=== PATIENT | female | born 1975 | race Caucasian/White ===

== ENCOUNTER 2017-03-27 09:50 | Day surgery (SDC) | payer BC ==
[~2017-03-27] VITALS: Ht 149.9 cm; Wt 77.1 kg
[2017-03-27] VITALS (9 sets, daily range): BP systolic 114–157; BP diastolic 66–82
--- NOTE | 2017-03-27 06:58 | Pre-Procedure Note/Attestation ---
Pre-Procedure Note/Attestation Complete Prior to Procedure Planned Procedure: right Procedure Narrative: rt shoulder scope, bankart repair, labral repair Indications for Procedure Pre-Operative Diagnosis: rt shoulder instability Attestation I attest that I discussed the nature of the procedure; its benefits; risks and complications; and alternatives (and the risks and benefits of such alternatives ), prior to the procedure, with the patient (or the patient's legal telesales representative). I attest that, if there was a reasonable possibility of needing a blood transfusion, the patient (or the patient's legal telesales representative) was given the [facility] standardized written summary, pursuant to the [place] Blood Safety Act ([place] Health and Safety Code # 1645, as amended). I attest that I re-evaluated the patient just prior to the surgery and that there has been no change in the patient's H&P, except as documented below: none JADON ETIENNE Mar 27, 2017 06:58
[~2017-03-27 09:50] MED LIST: ceFAZolin 1gm in D5W 55ml IVP ONE; celeBREX 200mg Cap **SURGERY PATIENTS ONLY ORAL ONE; oxyCONTIN 20mg tab ORAL ONE
[2017-03-27] MEDS ORDERED: ESCITALOPRAM OX20 MG ORAL (10:41)
[2017-03-27] MEDS ORDERED: LORazepam Inj 2mg/ml 1ml IV PRN (12:00)
[2017-03-27] MEDS ORDERED: LR 1000ml 1,000 ML IVLG SCH (12:00)
[2017-03-27] MEDS ORDERED: Metoclopramide 10mg/2ml Inj IVP PRN (12:00)
[2017-03-27] MEDS ORDERED: oxyCODONE HCL/Acetaminophen 5/325mg ORAL PRN (12:00)
[2017-03-27] MEDS ORDERED: Norco 5mg/325mg tab ORAL PRN ×2 (12:00→18:01)
[2017-03-27] MEDS ORDERED: Ketorolac 30mg Inj IV PRN ×2 (12:00)
[2017-03-27] MEDS ORDERED: DiphenhydrAMINE 50mg/ml Inj IVP PRN (12:00)
[2017-03-27] MEDS ORDERED: Midazolam 2mg/2ml Inj IVP PRN (12:00)
[2017-03-27] MEDS ORDERED: fentaNYL 100 mcg/2 mL IV PRN (12:00)
[2017-03-27] MEDS ORDERED: Atropine Inj 1mg/10ml Syr IV PRN (12:00)
[2017-03-27] MEDS ORDERED: Norco 7.5mg/325mg tab ORAL PRN (12:00)
[2017-03-27] MEDS ORDERED: Hydromorphone 0.5mg/0.5ml inj IVP PRN (12:00)
--- NOTE | 2017-03-27 12:00 | Anethesia Preoperative Eval ---
Anesthesia Pre-op PMH/ROS General Date of Evaluation: Mar 27, 2017 Time of Evaluation: 12:21 Anesthesiologist: Ervin ASA Score: ASA 2 Mallampati Score Class I : Soft palate, uvula, fauces, pillars visible Class II: Soft palate, uvula, fauces visible Class III: Soft palate, base of uvula visible Class IV: Only hard plate visible Mallampati Classification: Class I Surgeon: Dalia Diagnosis: R Shoulder Pain Surgical Procedure: R Shoulder Arthroscopy Anesthesia History: none Family History: no anesthesia problems Allergies: Coded Allergies: No Known Allergies (Unverified , 03/26/17) Medications: see eMAR Past Medical History Other: obesity - BMI 38 Anesthesia Pre-op Phys. Exam Physician Exam Last Vital Signs Date Time Temp Pulse Resp B/P (MAP) Pulse Ox O2 Delivery O2 Flow Rate FiO2 03/27/17 10:41 97.9 50 20 129/74 100 Room Air Constitutional: NAD Neurologic: CN 2-12 intact Cardiovascular: RRR Respiratory: CTA Gastrointestinal: S/NT/ND Airway Exam Mallampati Score: Class I MO: full ROM: full Teeth: intact Anesthesia Pre-op A/P Labs Urine Test Test 03/27/17 10:20 Urine HCG, Qualitative Negative Risk Assessment & Plan Assessment: ASA 2 Plan: GA, BIS, GlideScope Status Change Before Surgery: No Pre-Antibiotics Dru Grams Ancef IV Given Within 1 Hr of Incision: Yes Time Given: 12:42 Kalia Mueller MD Mar 27, 2017 12:00
[2017-03-27] MEDS ORDERED: Ropivacaine 5mg/ml Vial 30ml INJ ONE (12:10)
[2017-03-27] MEDS ORDERED: Lidocaine 1% MPF 10mg/ml 5ml ONE (12:30)
[2017-03-27] MEDS ORDERED: Alfentanil 2ml Inj ONE (12:30)
[2017-03-27] MEDS ORDERED: Propofol 200mg/20ml IV ONE (12:30)
[2017-03-27] MEDS ORDERED: Sterile Water Irrig 1000ml IRRIG ONE (12:30)
[2017-03-27] MEDS ORDERED: LR 1000ml ONE (12:30)
[2017-03-27] MEDS ORDERED: NS Irrig 4000ml IRRIG ONE (12:30)
--- NOTE | 2017-03-27 13:15 | Immediate Post-Op Evaluation ---
Immediate Post-Op Evalulation Immediate Post-Op Evalulation Procedure: R Shoulder Arthroscopy, Bankart Repair, Labral Repair Date of Evaluation: Mar 27, 2017 Time of Evaluation: 15:08 IV Fluids: 800 LR Blood Products: 0 Estimated Blood Loss: 20 Urinary Output: 0 Blood Pressure Systolic: 121 Blood Pressure Diastolic: 77 Pulse Rate: 108 Respiratory Rate: 16 O2 Sat by Pulse Oximetry: 99 Temperature (Fahrenheit): 97.1 Pain Score (1-10): 1 Nausea: No Vomiting: No Complications 0 Patient Status: awake, reacts, patent, extubated, none Hydration Status: adequate Dru Grams Ancef IV Given Within 1 Hr of Incision: Yes Time Given: 12:42 Kalia Mueller MD Mar 27, 2017 13:15
--- NOTE | 2017-03-27 13:15 | 48 Hour Post Anesthesia Eval ---
Post Anesthesia Evaluation Procedure: R Shoulder Arthroscopy, Bankart Repair, Labral Repair Date of Evaluation: Mar 27, 2017 Time of Evaluation: 17:34 Blood Pressure Systolic: 118 0: 67 Pulse Rate: 74 Respiratory Rate: 18 Temperature (Fahrenheit): 98.3 O2 Sat by Pulse Oximetry: 98 Airway: patent Nausea: No Vomiting: No Pain Intensity: 1 Hydration Status: adequate Cardiopulmonary Status: Stable Mental Status/LOC: patient returned to baseline Follow-up Care/Observations: 0 Post-Anesthesia Complications: 0 Follow-up care needed: ready to discharge Kalia Mueller MD Mar 27, 2017 13:15
--- NOTE | 2017-03-27 15:02 | Brief Operative Note ---
Immediate Post Operative Note Operative Note Chief Complaint: rt shoulder instability Pre-op Diagnosis: rt shoulder instability Procedure: rt shoulder scope, bankart repair, posterior labral repair Post-op Diagnosis: same as pre-op Findings: consistent w/pre-op dx studies Surgeon: md dru Roving Department Supervisor: brice lockhart Anesthesiologist: md sheree Anesthesia: general Specimen: none Complications: none Condition: stable Fluids: ns Estimated Blood Loss: minimal Drains: none Implant(s) used?: Yes - biomet RAVINDER LOCKHART Mar 27, 2017 15:02
[2017-03-27] MEDS ORDERED: D5 1/2NS 1,000 ML IV SCH (18:01)
[2017-03-27] MEDS ORDERED: HYDROmorphone 1mg/ml Carpuject SUBQ PRN (18:01)
[2017-03-27] MEDS ORDERED: Tylenol #3 tab (300mg/30mg) ORAL PRN (18:01)
--- NOTE | 2017-03-27 23:30 | Operative Note - Dictated ---
DATE OF OPERATION: 03/27/2017 PREOPERATIVE DIAGNOSES: 1. Right shoulder large anterior inferior labral tear with displacement (Bankart tear). 2. Right shoulder posterior labral tear. POSTOPERATIVE DIAGNOSES: 1. Right shoulder large anterior Bankart tear involving the entire anterior labrum all the way down to the inferior aspect of the glenoid with displacement medially. 2. Right shoulder loss of subglenoid bone 30% anterior inferiorly. 3. Right shoulder posterior labral tearing from posterior inferior all the way up to the mid posterior aspect of the shoulder. PROCEDURES: 1. Right shoulder arthroscopy and extensive intra-articular shaving. 2. Right shoulder anterior capsular repair (Bankart repair) with 4 Biomet 1.5 mm JuggerKnot anchors. 3. Right shoulder posterior and posterior inferior and posterior superior labral repair using 2 Biomet 2.9 mm JuggerKnot anchor with a posterior inferior capsular shift. 4. Extensive debridement of the superior labral tearing consistent with degenerative SLAP tear. SURGEON: Mateus Gómez M.D. TRAUMA DIRECTOR: Jeannie Fairchild PA-C. Cake Press Operator was present during the actual operative portion of the case and was important and essential part of the operation. During the operation, the veterinarian assistant held and operated the arthroscopic camera for visualization, assisted by manipulating the arm to help with visualization, and helped with essential parts of the repair process as necessary such as operating surgical instruments under surgeon supervision, suture management, and wound closures. ANESTHESIOLOGIST: Kalia Mueller M.D. ANESTHESIA: General LMA anesthesia. EBL: Minimal. COMPLICATIONS: None. SURGICAL INDICATION: Patient is a 41-year-old female who sustained the above injury to her shoulder. The patient was treated non-operative initially, but this did not alleviate the patients symptoms. Therefore, after discussing all non-surgical and surgical options, and discussing all foreseeable risk and benefits of surgery, the patient opted for surgical treatment as described above. PATIENT POSITIONING: Patient was brought to the operating room table and was placed on the operating room table. All pressure points were well padded. General anesthesia was induced and patient was then placed in the lateral decubitus position. All pressure points were well padded again and an axillary roll was placed. Patient shoulder was then prepped and draped in the usual sterile fashion. Time out was performed and the appropriate preoperative antibiotic was given by the anesthesiologist. EXAMINATION OF SHOULDER UNDER ANESTHESIA: The shoulder was examined under anesthesia with all muscles well relaxed. The shoulder was forward flexed, abducted and was placed through full range of external and internal rotation. The anterior, posterior, and inferior stability of the shoulder was checked. The exam revealed no evidence of adhesive capsulitis. However, there was marked anterior instability with anterior inferior instability with complete dislocation of the shoulder. PORTAL PLACEMENT: The posterior portal was established 2 cm inferior and 1 cm medial to the edge of the posterior acromion. 1 cm skin incision was made using an eleven blade and using the blunt obturator, the cannula was gently placed through the capsule. The mid-glenoid portal was established just lateral to the coracoid process under direct visualization. Direction of the cannula was first established using a spinal needle, and subsequently, the cannula was placed through the capsule with a blunt obturator. The anterior superior cannula was established under direct visualization off the anterior lateral edge of the acromion and just anterior to the biceps tendon through the rotator interval. The directional of cannula was first established using a spinal needle, and subsequently, the cannula was placed through the capsule with a blunt obturator. DIAGNOSTIC ARTHROSCOPY: The biceps tendon was probed and pulled through the joint for visualization. It appeared normal. The biceps anchor was palpated with a probe and was visualized. There was evidence of a superior labral fraying and tearing consistent with degenerative SLAP tear. The posterior labrum and axillary recess was visualized. This was normal and there was no evidence of loose cartilage or fragments in this area. There was extensive chondral damage over the glenoid and there was bony glenoid loss anteriorly and anterior inferiorly involving 30% of the glenoid. The articular surface of the rotator cuff was visualized and probed next. There was no evidence of articular sided rotator cuff tear extending from the supraspinatus back to the posterior cuff. The Humeral head articular surface was then visualized. There was a large Hill-Sachs lesion posteriorly. However, once the shoulder was reduced, this was not engaging. Next the anterior labrum, middle glenohumeral ligament, subscapularis tendon, and the anterior inferior glenohumeral ligament were evaluated. There was a large anterior labral tearing involving anterior inferior labrum all the way up to the subscap. The entire labrum was torn and medially displaced. At this point, the scope was moved to the midglenoid portal and the posterior structures including the posterior labrum, posterior capsule and posterior cuff were visualized. There was a large posterior labral tearing starting from posterior superiorly all the way down to the posterior inferiorly. The subscapularis recess was devoid of any loose bodies and the anterior capsule was well attached to the humeral neck. The middle and anterior inferior glenohumeral ligament was visualized. Again, there was a large anterior labral tearing. OPERATIVE DEBRIDEMENTS AND REPAIR: Care was given to all partial thickness tears and frayed structures in the shoulder joint. The frayed rotator cuff and labrum was debrided using a shaver initially through the anterior portal and subsequently through the posterior portal to complete the debridement. This allowed for smooth debridement of all affected structures and all loose fragments were removed. The scope was placed in the anterior-superior cannula for visualization. Through the posterior cannula, initially, care was given to the posterior capsule. The posterior capsule was first prepared using a rasp to create microbleeding. At this point, two Biomet 1.5 mm JuggerKnot anchors were placed, one posterior inferiorly and one mid posteriorly. These anchors were used to do a posterior labral repair as well as the posterior inferior capsular shift. At this point, using suture passing technique, a first posterior inferior capsular shift was performed passing through the posterior inferior labral tear. Second anchor was used to do a more direct posterior repair. The suture was then placed outside the posterior cannula and was tied after completion of the anterior repair using Revo non-sliding knot with alternating-post half hitches. Then, through the midglenoid cannula, care was given to the torn anterior labrum. The scar portion of the anterior labrum was first mobilized with a liberator elevator off the glenoid neck. Once this was accomplished, the mobilization was taken more inferiorly all the way down to the 6 oclock position of the glenoid to allow transport of the labrum with the attached anterior inferior glenohumeral ligament superiorly. The glenoid rim was then prepared by debriding it using a shaver and a alejandro to provide bleeding bone for accepting the labrum and the ligament. Using the guide, drill holes were made at the 5, 4, 3, and 2 oclock positions of the glenoid 1-2 mm medial to the margin of the articular cartilage on the glenoid surface. A all suture anchor loaded with a non-absorbable #2 strong suture was then placed and tapped through this drill hole. The security of the anchor inside the bone was checked and it was assured that the anchor is well seated and not proud. Using standard suture passing instruments and using pinch-tuck technique, the anterior inferior glenohumeral ligament was shifted from inferiorly to anterior-superior direction and was incorporated with the labral bite. The suture was then passed through the capsulolabral complex, and it was then secured using a SMC sliding knot followed by 3 alternating-post half hitches. This process was performed for all anchors. The security of the repair was assured with a probe. The position of the humeral head was checked and it appeared that the head was sitting centrally within the glenoid as judged by the central bare area. CONDITION AT DISCHARGE FROM OPERATING ROOM: The skin was re-approximated and sterile dressing and sling were applied. All lap counts and instrument counts were correct. Patient tolerated the procedure well without complications and was taken to the recovery room in stable conditions. Mateus Gómez M.D. DR: ANDREW JOB#: [id number] CC:
== END 2017-03-27 16:20 | disposition home or self-care (01) ==
LOC: SUR 09:50
DX: S43.401A Unspecified sprain of right shoulder joint, initial encounter (principal); X58.XXXA Exposure to other specified factors, initial encounter; Y93.9 Activity, unspecified; Y92.9 Unspecified place or not applicable
CPT/HCPCS: 29806; 29807; 29823; 81025; J0690; J2704; J2795; J3490; J7120; 94003; 94150; C1713